=== PATIENT | female | born 1990 | race Caucasian/White ===

== ENCOUNTER 2020-11-05 16:21 | Emergency (ER) | payer OTHER ==
[2020-11-05 20:34] LABS: RED BLOOD COUNT 4.38 M/UL (4.00-5.10); WHITE BLOOD COUNT 7.2 K/UL (4.5-11.0)
[2020-11-05 20:49] LABS: BUN/CREATININE RATIO 12 (0-10)
[2020-11-05] MEDS ORDERED: FLAGYL500 MG PO (21:36)
[2020-11-05] MEDS ORDERED: CEPHALEXIN500 M1 PO (21:36)
[2020-11-05] MEDS ORDERED: DIFLUCAN150 MG PO (21:36)
[2020-11-09 16:13] LABS: CHLAMYDIA TRACHOMATIS, NAA Negative (Negative); NEISSERIA GONORRHOEAE, NAA Negative (Negative)
== END 2020-11-05 21:50 | disposition home or self-care (01) ==
LOC: ER1 16:21
PROVIDERS: Physician Assistant
DX: N39.0 Urinary tract infection, site not specified (principal); A59.01 Trichomonal vulvovaginitis; I10 Essential (primary) hypertension; Z90.49 Acquired absence of other specified parts of digestive tract; Z79.899 Other long term (current) drug therapy; F17.290 Nicotine dependence, other tobacco product, uncomplicated
CPT/HCPCS: 80053; 81001; 84703; 85025; 87086; 87210; 96372; 96374; 99284; J0696; J1885; J7030; Q9967